=== PATIENT | female | born 1965 ===

== ENCOUNTER 2022-02-11 01:00 | Emergency (ER) | payer OTHER ==
[2022-02-11] MEDS ORDERED: Sodium Chloride 0.9% 10 ML Syringe FLUSH PRN (01:08)
[2022-02-11] MEDS ORDERED: Sodium Chloride 0.9% 2.5 ML Syringe FLUSH PRN (01:08)
[2022-02-11 02:09] LABS: BLOOD UREA NITROGEN,BUN 12 mg/dL (7.0-18.0); CHLORIDE,CL 101 mmol/L (98-107); ESTIMATED GFR > 60.0 ml/min; GLUCOSE RANDOM 367 mg/dL (74-106); POTASSIUM,K 4.8 mmol/L (3.5-5.1); SODIUM,NA 142 mmol/L (136-145)
[2022-02-11] MEDS ORDERED: Sodium Chloride 0.9% 1,000 ML IV STA (04:23)
== END 2022-02-11 09:54 ==
LOC: MW.ED 01:00 → EDBD 01:00 → MERGE 01:00 → EDSEX 01:00 → MW.ED 09:54
DX: S12.490A Other displaced fracture of fifth cervical vertebra, initial encounter for closed fracture (principal); S00.81XA Abrasion of other part of head, initial encounter; F10.129 Alcohol abuse with intoxication, unspecified; Z20.822 Contact with and (suspected) exposure to COVID-19; Y90.8 Blood alcohol level of 240 mg/100 ml or more; W19.XXXA Unspecified fall, initial encounter
CPT/HCPCS: 36415; 70450; 70450-26; 72125; 72125-26; 80053; 80305-QW; 80307; 84484; 85025; 93005; 93010; 99285; 99285-25; A9270-GY; J7030; U0002